=== PATIENT | female | born 1970 | race African-American/Black ===

== ENCOUNTER 2017-11-15 22:02 | Emergency (ER) | payer OTHER ==
[~2017-11-15] VITALS: Ht 167.6 cm; Wt 64.4 kg
[~2017-11-15 22:02] MED LIST: PRED10TA PO; vicodin
[2017-11-15] MEDS ORDERED: ASPIRIN 81MG TABLET PO STA (23:43)
[2017-11-15] MEDS ORDERED: SODIUM CHLORIDE 0.9% 500 ML IV ONE (23:43)
[2017-11-16 00:08] LABS: CHLORIDE 106 mEq/L (98-107)
[2017-11-16 00:13] LABS: BASOPHILS % 0.9 % (0.0-2.0); D-DIMER 0.29 mg/L FEU (<0.50); EOSINOPHILS % 2.8 % (0.0-5.0); HEMATOCRIT. 34.2 % (36.0-48.0); LYMPHOCYTES % 40.2 % (20.0-50.0); MEAN CORPUSCULAR HEMOGLOBIN 31.9 pg (28.0-32.0); MEAN CORPUSCULAR VOLUME 90.8 fL (81.0-99.0); MONOCYTES % 11.6 % (2.0-8.0); NEUTROPHILS % 44.5 % (40.0-76.0); PLATELET 337 x1000/uL (130-400); PROTHROMBIN TIME 10.8 sec (9.4-11.6); RED BLOOD CELL COUNT 3.77 mill/uL (4.2-5.4)
[2017-11-16 00:15] LABS: HCG SCREEN NEGATIVE
[2017-11-16 02:31] VITALS: BP 126/72
== END 2017-11-16 06:21 | disposition home or self-care (01) ==
LOC: ER 22:16
DX: R07.9 Chest pain, unspecified (principal); F17.200 Nicotine dependence, unspecified, uncomplicated; Z88.5 Allergy status to narcotic agent; Z79.82 Long term (current) use of aspirin
CPT/HCPCS: 36415; 71045; 80053; 83690; 84484; 84703; 85025; 85379; 85610; 85730; 93005; 96360; 96361; 99285; J7040